=== PATIENT | female | born 2005 | race Hispanic/Latino ===

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

== ENCOUNTER 2024-09-01 19:04 | Emergency (ER) | payer SELFPAY ==
[~2024-09-01] VITALS: Ht 162.6 cm; Wt 90.3 kg
--- NOTE | 2024-09-01 19:53 | HMCIMG ---
ANKLE COMP 3VWS RT HISTORY: Pain COMPARISON: None TECHNIQUE: 3 images of right ankle were obtained. FINDINGS: There is no acute displaced fracture or dislocation. Soft tissue swelling is seen. IMPRESSION: 1. Findings as described above.
--- NOTE | 2024-09-01 20:02 | ERN ---
General Chief Complaint: Ankle Problem Stated Complaint: RIGHT ANKLE SPRAIN Time Seen by MD: 19:05 Time Seen by Midlevel: 19:05 Source: patient History of Present Illness Initial Comments Patient is a 19-year-old female with no significant past medical history presenting with right ankle pain. Patient states she accidentally rolled her ankle. Denies any other injury. Allergies: Coded Allergies: No Known Allergies (Unverified Allergy, Unknown, 09/01/24) Home Meds Active Scripts Ketorolac Tromethamine (Ketorolac Tromethamine) 10 Mg Tablet, 1 TAB PO TID for pain for 5 Days, #15 TAB 0 Refills Prov:JAMA FREIRE 09/01/24 Past Medical History Past Medical History: No Pertinent History Past Surgical History: None Female( History) LMP: Jul 22, 2024 ROS Dictation CONSTITUTIONAL: Negative except for HPI HEAD/FACE: Negative except for HPI EENT: Negative except for HPI RESPIRATORY: Negative except for HPI GASTROINTESTINAL/ABDOMINAL: Negative except for HPI GENITOURINARY: Negative except for HPI MUSCULOSKELETAL: Negative except for HPI INTEGUMENTARY: Negative except for HPI NEUROLOGICAL/PSYCH: Negative except for HPI HEMATOLOGIC/LYMPHATIC: Negative except for HPI All Systems Negative, Except as noted above. 13 point review of systems assessed and all negative except for above. Physical Exam Physical Exam Dictation PHYSICAL EXAM: GENERAL: alert,, awake oriented x 3 HEENT: EOMI, Sclera non icteric, moist mucosa NECK: Supple, no JVD, trachea midline LUNGS: Clear breath sounds bilaterally. No wheezes HEART: Regular rate and rhythm. Normal S1 and S2, without murmurs ABD: Abdomen soft, nontender. Bowel sounds present EXT: Tenderness over the lateral malleolus, right foot is neurovascularly intact NEURO: Alert and oriented to person, follows commands MDM MDM: Differential diagnosis: Ankle sprain, fracture, contusion There are no social concerns with this patient. Prescription drug management Prescriptions will include: Toradol Medical management and examination interpretation discussions were had by me with other qualified healthcare professionals as indicated for the patient's care. ED Course Orders Procedure Category Date Status Time Ankle Comp 3vws Rt RAD 09/01/24 Resulted 19:06 *Nursing CPOE 09/01/24 Transmitted Communication: 20:19 Crutches ROSALBA 09/01/24 Complete 20:19 Vital Signs Date Time Temp Pulse Resp B/P (MAP) Pulse Ox O2 Delivery O2 Flow Rate FiO2 09/01/24 20:47 98.2 89 18 129/82 100 Room Air* 0 21 09/01/24 19:52 99.5 90 20 132/82 100 Room Air [facility] [address] [place] [address] IMAGING REPORT Signed PATIENT: JOSAFAT JAIMES MR#: [id number] : 2005 SEX: F AGE: 19 LOCATION: [facility] ORDER 06 STATUS: REG ER REPORT#: [id number] SERVICE 05 REASON: pain/swelling ORDERING PHYSICIAN: JAMA FREIRE PROCEDURE: [id number] - ANKLE COMP 3VWS RT ANKLE COMP 3VWS RT HISTORY: Pain COMPARISON: None TECHNIQUE: 3 images of right ankle were obtained. FINDINGS: There is no acute displaced fracture or dislocation. Soft tissue swelling is seen. IMPRESSION: 1. Findings as described above. DICTATED BY: SCAR MATA MD DATE: 09/01/241950 ELECTRONICALLY SIGNED BY: SCAR MATA MD DATE: 09/01/241952 DX & DISP Disposition: Discharge Departure Impression: Primary Impression: Right ankle sprain Condition: Stable Scripts Ketorolac Tromethamine (Ketorolac Tromethamine) 10 Mg Tablet 1 TAB PO TID for pain for 5 Days, #15 TAB 0 Refills Prov: JAMA FREIRE 09/01/24 Additional Instructions: Your ankle of the right foot is negative for any acute fracture. You may take Tylenol and Motrin for pain as needed. Return to the ER for any new or worsening symptoms. Referrals: NONE (PCP) Time of Disposition: 20:02 I have reviewed the case, and I agree with, Diagnosis and Plan I performed the substantive portion of the visit. I have reviewed and personally made and approve the management plan that is documented in the note by myself or the AURELIO. I acknowledge for responsibility for the patient's management plan. JAMA FREIRE Sep 01, 2024 20:02
[2024-09-01] MEDS ORDERED: KETO10TA2 PO (20:19)
[2024-09-01 20:47] VITALS: BP 129/82; PULSE 89; RESP 18; TEMP 98.3; O2SAT 100
--- NOTE | 2024-09-01 21:01 | NUR ---
RANDY WRAP APPLIED TO RT ANKLE; CRUTCHES GIVEN TO PT.
== END 2024-09-01 20:56 | disposition home or self-care (01) ==
LOC: EDH 19:04
DX: S93.491A Sprain of other ligament of right ankle, initial encounter (principal); Z79.899 Other long term (current) drug therapy; X50.1XXA Overexertion from prolonged static or awkward postures, initial encounter; Y93.89 Activity, other specified; Y92.89 Other specified places as the place of occurrence of the external cause; Y99.8 Other external cause status
CPT/HCPCS: 73610; 99283